=== PATIENT | female | born 1980 | race Caucasian/White ===

== ENCOUNTER 2019-03-07 06:37 | Day surgery (SDC) | payer OTHER ==
[~2019-03-07] VITALS: Ht 175.3 cm; Wt 78.0 kg
[~2019-03-07 06:37] MED LIST: CALC250T PO; PANT40TA3 PO
[2019-03-07] MEDS ORDERED: NS 1,000 ML IV ONE (07:00)
[2019-03-07] MEDS ORDERED: LIDOCAINE 2% INJ 100 MG/5 ML SDV (FOR ANES.) As Ordered ONE (07:44)
[2019-03-07] MEDS ORDERED: PROPOFOL 500 MG/50 ML VIAL As Ordered ONE (07:44)
[2019-03-07] MEDS ORDERED: fentaNYL 100 MCG/2 ML INJECTION (J3010) As Ordered ONE (07:44)
--- NOTE | 2019-03-07 07:46 | ROOR ---
Patient Name: Gemma Albrecht Procedure Date: 03/07/2019 7:33 AM Date of : 1980 Age: 39 Room: [facility] Gender: Female Note Status: Finalized Procedure: Upper Endoscopy + Biopsies Indications: Heartburn, Exclusion of Arroyo's esophagus Providers: Miguel Angel Coker MD Referring MD: ИВАН CORONEL DO Requesting Provider: Medicines: Monitored Anesthesia Care Complications: No immediate complications. Procedure: Pre-Anesthesia Assessment: - The heart rate, respiratory rate, oxygen saturations, blood pressure, adequacy of pulmonary ventilation, and response to care were monitored throughout the procedure. The Endoscope was introduced through the mouth, and advanced to the second part of duodenum. The upper GI endoscopy was accomplished without difficulty. The patient tolerated the procedure well. Findings: The Z-line was irregular and was found 40 cm from the incisors. Multiple biopsies were obtained with cold forceps for evaluation to rule out Arroyo's Esophagus randomly at the gastroesophageal junction. A small hiatal hernia was present. No other significant abnormalities were identified in a careful examination of the stomach. The exam of the duodenum was otherwise normal. Impression: - Z-line irregular, 40 cm from the incisors. - Small hiatal hernia. - Multiple biopsies were obtained at the gastroesophageal junction. - The examination was otherwise normal. Recommendation: - Patient has a contact number available for emergencies. The signs and symptoms of potential delayed complications were discussed with the patient. Return to normal activities tomorrow. Written discharge instructions were provided to the patient. - High fiber diet. - Discharge patient to home. - Follow an antireflux regimen. - Continue present medications. - Await pathology results. - Telephone GI clinic for pathology results in 1 week. - Return to referring physician. - The findings and recommendations were discussed with the patient's family. Miguel Angel Coker MD Miguel Angel Coker MD 03/07/2019 7:46:43 AM Electronically signed by Miguel Angel Coker MD Number of Addenda: 0 Note Initiated On: 03/07/2019 7:33 AM Estimated Blood Loss: Estimated blood loss: none.
[2019-03-07 08:10] VITALS: BP 130/84
== END 2019-03-07 08:12 | disposition home or self-care (01) ==
LOC: M OPP 06:37
PROVIDERS: ATTEND Internal Medicine Gastroenterology
DX: K22.8 Other specified diseases of esophagus (principal); K44.9 Diaphragmatic hernia without obstruction or gangrene; R12 Heartburn
CPT/HCPCS: 43239; 88305; J3010